=== PATIENT | female | born 1975 | race Caucasian/White ===

== ENCOUNTER → 2017-04-11 | Outpatient (CLI) | payer OTHER ==
[~2017-04-11] MED LIST: ADVI200C9 PO; LORT5TAB PO; MELO15TA2 PO; PRED20 PO; ROBA750T3 PO; TAB-TAB PO
[2017-04-11 08:21] LABS: ALT (GPT) 19 U/L (10-53); ANION GAP 6 MEQ/L (5-15); AST (GOT) 20 U/L (15-37); BICARBONATE 28.1 MEQ/L (21.0-32.0); BLOOD UREA NITROGEN 8 MG/DL (7-18); CHLORIDE 107 MEQ/L (98-107); GLOMERULAR FILTRATION RATE 99 ML/MIN (>89); GLUCOSE,FASTING 90 MG/DL (74-99); SODIUM (NA) 141 MEQ/L (136-145)
[2017-04-11 08:27] LABS: ALKALINE PHOSPHATASE 50 U/L (45-117); HDL CHOLESTEROL 52.5 MG/DL (40.0-60.0); LDL CHOLESTEROL 93 MG/DL (0-99); THYROXINE (T4) 8.6 MCG/DL (4.8-13.9); TOTAL BILIRUBIN ADULT 0.5 MG/DL (0.2-1.0)
== END ==
LOC: CLAB 07:28
PROVIDERS: ATTEND Family Medicine
DX: R53.83 Other fatigue (principal)
CPT/HCPCS: 36415; 80053; 80061; 84436; 84443

== ENCOUNTER 2017-09-30 23:09 | Emergency (ER) | payer OTHER ==
[~2017-09-30] VITALS: Ht 170.2 cm; Wt 55.1 kg
[2017-09-30 23:25] VITALS: BP 99/49; PULSE 56; RESP 20; TEMP 97.6; O2SAT 100
[2017-10-01 00:05] VITALS: BP 106/52; PULSE 54; RESP 16; RESP 18; O2SAT 99
[2017-10-01] MEDS ORDERED: CALCTAB94 PO (00:16)
[2017-10-01] MEDS ORDERED: SERT25TA83 PO (00:16)
[2017-10-01] MEDS ORDERED: VITA250C3 CHEW (00:16)
[2017-10-01] MEDS ORDERED: VITA2000 PO (00:16)
[2017-10-01 00:55] LABS: BLOOD, URINE TRACE (NEG); GLUCOSE,URINE NEG (NEG); KETONE, URINE 15 mg/dL (NEG); NITRITE,URINE NEG (NEG)
[2017-10-01 00:55] LABS: AUTOMATED NEUTROPHIL # 15.8 TH/MM3 (1.8-7.7); BASOPHIL # 0.2 TH/MM3 (0-0.2); EOSINOPHIL % 0.1 % (0.0-4.0); HEMATOCRIT 44.2 % (35.0-46.0); LYMPH % 2.8 % (9.0-44.0); LYMPHOCYTE # 0.5 TH/MM3 (1.0-4.8); MEAN CELL VOLUME 85.8 FL (80.0-100.0); MEAN CORPUSCULAR HEMOGLOBIN 29.9 PG (27.0-34.0); MEAN CORPUSCULAR HGB CONC 34.8 % (32.0-36.0); MONO % 2.1 % (0.0-8.0); PLATELET COUNT 280 TH/MM3 (150-450); RED BLOOD COUNT 5.15 MIL/MM3 (4.00-5.30); RED CELL DISTRIBUTION WIDTH 12.4 % (11.6-17.2); WHITE BLOOD COUNT 16.9 TH/MM3 (4.0-11.0)
[2017-10-01 01:05] VITALS: BP 99/46; PULSE 52; RESP 16; O2SAT 96
[2017-10-01 01:29] LABS: CHLORIDE 103 MEQ/L (98-107); POTASSIUM 3.9 MEQ/L (3.5-5.1); SODIUM (NA) 135 MEQ/L (136-145)
[2017-10-01 01:32] LABS: ANION GAP 8 MEQ/L (5-15); BICARBONATE 24.4 MEQ/L (21.0-32.0)
[2017-10-01 01:33] LABS: BLOOD UREA NITROGEN 14 MG/DL (7-18)
[2017-10-01 01:35] LABS: ALT (GPT) 27 U/L (10-53); AST (GOT) 21 U/L (15-37); GLOMERULAR FILTRATION RATE 87 ML/MIN (>89)
[2017-10-01 01:37] LABS: TOTAL BILIRUBIN ADULT 0.6 MG/DL (0.2-1.0)
[2017-10-01 01:38] LABS: ALKALINE PHOSPHATASE 61 U/L (45-117)
[2017-10-01 01:41] LABS: BACTERIA, URINE OCC /hpf; COMMENT (UR) CULT NOT INDICATED; CULTURE IF INDICATED CULT NOT INDICATED; MUCUS URINE MANY /lpf (OCC); SQUAMOUS EPITHELIAL CELL URINE 0-5 /hpf (0-5); URINE COLOR AMBER (YELLW/STRAW)
[2017-10-01] MEDS ORDERED: SODIUM CHLORID 0.9% 500 ML INJ 500 ML IV ONE (01:45)
[2017-10-01] MEDS ORDERED: ONDANSETRON HCL 4 MG/2 ML VIAL IV PUSH ONE (01:45)
[2017-10-01 01:48] LABS: BANDS 13 % (0-6); PLATELET ESTIMATE SMEAR NORMAL (NORMAL); PLATELET MORPHOLOGY CLUMPED (NORMAL); POLYS (SEG NEUTROPHILS) 77 % (16-70); SCAN/DIFF FINAL DIFF MANUAL; WBC DIFF SAMPLE 100
[2017-10-01 02:05] VITALS: BP 96/47; PULSE 52; RESP 16; O2SAT 98
[2017-10-01 02:15] LABS: HEMO FLAGS AUTO DIFF; NEUTROPHIL # MANUAL DIFF 15.2 TH/MM3 (1.8-7.7)
[2017-10-01] MEDS ORDERED: SODIUM CHLOR 0.9% 1000 ML INJ 1,000 ML IV ONE (02:45)
[2017-10-01 03:05] VITALS: BP 91/43; PULSE 48; RESP 16; O2SAT 99
--- NOTE | 2017-10-01 03:21 | PD ---
HPI Chief Complaint: GI Complaint Time Seen by Provider: 01:31 Travel History International Travel<30 days: No Contact w/Intl Traveler<30days: No Traveled to known affect area: No History of Present Illness HPI 42-year-old female presents to the emergency department for complaint of multiple episodes of nausea vomiting and diarrhea with intermittent abdominal cramping onset shortly after eating a salad Saturday afternoon. No hematemesis no coffee-ground emesis no melena hematochezia. No fever or chills. Patient states after multiple episodes of vomiting and diarrhea 5 decided to come the emergency room for evaluation. Pain intensity was being ordered diarrhea for over 10 in intensity. PFSH Past Medical History Medical History: Denies Significant Hx Diminished Hearing: No Musculoskeletal: Yes ("10years ago was also in [facility],had mri done of neck,discs had shifted") Tetanus Vaccination: < 5 Years Influenza Vaccination: Yes ?: Not LMP: 09/07/17 : 0 Para: 0 Miscarriage: 0 : 0 Past Surgical History Eye Surgery: Yes (LETICIA RODRÍGUEZ) Social History Alcohol Use: Yes (WEEKENDS) Tobacco Use: No Substance Use: No Allergies-Medications (Allergen,Severity, Reaction): Coded Allergies: No Known Allergies (Verified Adverse Reaction, Unknown, 10/01/17) Reported Meds & Prescriptions Reported Meds & Active Scripts Active Zofran Odt (Ondansetron Odt) 4 Mg Tab 4 Mg SL Q6HR PRN Reported Vitamin D3 (Cholecalciferol) 2,000 Unit Cap 2,000 Units PO DAILY Vitamin C (Ascorbic Acid) 250 Mg Chew 500 Mg CHEW DAILY Calcium 600 (Calcium Carbonate) 600 Mg Calcium (1500 Mg) Tab 1,500 Mg PO DAILY Sertraline (Sertraline HCl) 25 Mg Tab 25 Mg PO DAILY Review of Systems Except as stated in HPI: all other systems reviewed are Neg General / Constitutional: No: Fever, Chills HENT: No: Congestion Cardiovascular: No: Chest Pain or Discomfort Gastrointestinal: Positive: Nausea, Vomiting, Diarrhea, Abdominal Pain, No: Hematemesis, Hematochezia, Loss of Appetite Genitourinary: Positive: Decreased Urinary Output, No: Urgency, Frequency, Dysuria Musculoskeletal: No: Myalgias, Arthralgias Skin: No Rash Neurologic: No: Weakness, Dizziness, Syncope, Focal Abnormalities Psychiatric: No: Anxiety Hematologic/Lymphatic: No: Lymph Node Enlargement Physical Exam Narrative GENERAL: Well-developed well-nourished female in no acute distress no respiratory distress SKIN: Warm and dry. HEAD: Normocephalic. EYES: No scleral icterus. No injection or drainage. NECK: Supple, trachea midline. No JVD or lymphadenopathy. CARDIOVASCULAR: Regular rate and rhythm without murmurs, gallops, or rubs. RESPIRATORY: Breath sounds equal bilaterally. No accessory muscle use. GASTROINTESTINAL: Abdomen soft, mild diffuse tenderness to palpation without guarding or rebound, no heel strike pain, nondistended. MUSCULOSKELETAL: No cyanosis, or edema. BACK: Nontender without obvious deformity. No CVA tenderness. Data Data Last Documented VS Vital Signs Date Time Temp Pulse Resp B/P (MAP) Pulse Ox O2 Delivery O2 Flow Rate FiO2 10/01/17 00:05 16 99 Room Air 10/01/17 00:05 54 09/30/17 23:25 97.6 Orders Orders Complete Blood Count With Diff (10/01/17 00:16) Comprehensive Metabolic Panel (10/01/17 00:16) Urinalysis - C+S If Indicated (10/01/17 00:16) Iv Access Insert/Monitor (10/01/17 00:16) Oximetry (10/01/17 00:16) Lipase (10/01/17 00:16) Ed Urine Pregnancytest Poc (10/01/17 00:26) Ondansetron Inj (Zofran Inj) (10/01/17 01:45) Sodium Chlorid 0.9% 500 Ml Inj (Ns 500 M (10/01/17 01:45) Sodium Chlor 0.9% 1000 Ml Inj (Ns 1000 M (10/01/17 02:45) Enteric Path (Stool) (10/01/17 03:09) Ed Discharge Order (10/01/17 04:05) Labs Laboratory Tests Test 10/01/17 00:10 10/01/17 00:30 White Blood Count 16.9 TH/MM3 Red Blood Count 5.15 MIL/MM3 Hemoglobin 15.4 GM/DL Hematocrit 44.2 % Mean Corpuscular Volume 85.8 FL Mean Corpuscular Hemoglobin 29.9 PG Mean Corpuscular Hemoglobin Concent 34.8 % Red Cell Distribution Width 12.4 % Platelet Count 280 TH/MM3 Mean Platelet Volume 9.8 FL Neutrophils (%) (Auto) 94.0 % Lymphocytes (%) (Auto) 2.8 % Monocytes (%) (Auto) 2.1 % Eosinophils (%) (Auto) 0.1 % Basophils (%) (Auto) 1.0 % Neutrophils # (Auto) 15.8 TH/MM3 Lymphocytes # (Auto) 0.5 TH/MM3 Monocytes # (Auto) 0.4 TH/MM3 Eosinophils # (Auto) 0.0 TH/MM3 Basophils # (Auto) 0.2 TH/MM3 CBC Comment AUTO DIFF Differential Total Cells Counted 100 Neutrophils % (Manual) 77 % Band Neutrophils % 13 % Lymphocytes % 3 % Monocytes % 7 % Neutrophils # (Manual) 15.2 TH/MM3 Differential Comment FINAL DIFF MANUAL Platelet Estimate NORMAL Platelet Morphology Comment CLUMPED Red Cell Morphology Comment NORMAL Blood Urea Nitrogen 14 MG/DL Creatinine 0.73 MG/DL Random Glucose 119 MG/DL Total Protein 8.3 GM/DL Albumin 4.4 GM/DL Calcium Level 8.9 MG/DL Alkaline Phosphatase 61 U/L Aspartate Amino Transf (AST/SGOT) 21 U/L Alanine Aminotransferase (ALT/SGPT) 27 U/L Total Bilirubin 0.6 MG/DL Sodium Level 135 MEQ/L Potassium Level 3.9 MEQ/L Chloride Level 103 MEQ/L Carbon Dioxide Level 24.4 MEQ/L Anion Gap 8 MEQ/L Estimat Glomerular Filtration Rate 87 ML/MIN Lipase 152 U/L Urine Color LAURENCE Urine Turbidity CLEAR Urine pH 6.0 Urine Specific Ephraim 1.028 Urine Protein TRACE mg/dL Urine Glucose (UA) NEG mg/dL Urine Ketones 15 mg/dL Urine Occult Blood TRACE Urine Nitrite NEG Urine Bilirubin NEG Urine Leukocyte Esterase NEG Urine RBC 4-9 /hpf Urine Squamous Epithelial Cells 0-5 /hpf Urine Bacteria OCC /hpf Urine Mucus MANY /lpf Microscopic Urinalysis Comment CULT NOT INDICATED MDM Medical Decision Making Medical Screen Exam Complete: Yes Emergency Medical Condition: Yes Medical Record Reviewed: Yes Interpretation(s) CBC & BMP Diagram 10/01/17 00:10 Total Protein 8.3 H, Albumin 4.4, Calcium Level 8.9, Alkaline Phosphatase 61, Aspartate Amino Transf (AST/SGOT) 21, Alanine Aminotransferase (ALT/SGPT) 27, Total Bilirubin 0.6 Vital Signs Date Time Temp Pulse Resp B/P (MAP) Pulse Ox O2 Delivery O2 Flow Rate FiO2 10/01/17 00:05 16 99 Room Air 10/01/17 00:05 54 18 106/52 (70) 99 Room Air 09/30/17 23:25 97.6 56 20 99/49 (66) 100 Differential Diagnosis Gastroenteritis, food borne illness, food poisoning, colitis, bowel obstruction , ileus, atypical appendicitis, cholecystitis, pancreatitis, dehydration Narrative Course Patient placed on lgsw IV access obtained specimens collected and sent for resulting patient administered 1 L bolus normal saline Patient administered Zofran 4 mg IV Patient administered additional bolus of normal saline. CBC is automated differential leukocytosis with left shift however patient presents with history of 20 episodes of vomiting and 20 episodes of diarrhea consistent with volume depletion stress demargination and inflammatory/ infectious source of leukocytosis; metabolic panel within normal limits; urinalysis specific gravity is 1.028 specimen specimen collected this is after patient has received 1.5 L of normal saline bolus consistent with 30 cc per KG bolus Patient able to produce stool specimen that is Hemoccult negative sent for enteric pathogens Patient feels well taking oral hydration well without recurrent nausea or vomiting decreased frequency of diarrheal stool Abdomen soft nontender no guarding or rebound Patient is stable for outpatient management [facility] Point of Care Internal Pos. & Neg. Controls: Passed Fecal Specimen Occult Blood: Negative Diagnosis Primary Impression: Gastroenteritis Additional Impression: Food poisoning Qualified Codes: T62.91XA - Toxic effect of unspecified noxious substance eaten as food, accidental (unintentional), initial encounter Referrals: Primary Care Physician 2 days Patient Instructions: General Instructions Departure Forms: Tests/Procedures, Work Release Special Instructions: no work x 1 day Additional Instructions: Increase fluid hydration, follow clear liquid diet for next 12-24 hours advancing diet as tolerated to bland/Kelsey diet and then regular diet avoiding fried and fatty foods Temperature every 4 hours with thermometer take acetaminophen/Tylenol as needed for fever 100.4F or greater Takes Zofran as prescribed as needed for nausea and/or vomiting Return to the emergency for any concerns or change in condition No work times one day Follow-up with your primary care provider call office to schedule follow-up appointment Med/Other Pt SpecificInfo: Prescription(s) given Scripts Ondansetron Odt (Zofran Odt) 4 Mg Tab 4 MG SL Q6HR Y for Nausea/Vomiting, #10 TAB 0 Refills Prov: Caro Thomas MD 10/01/17 Disposition: 01 DISCHARGE HOME Condition: Stable Caro Thomas MD Oct 01, 2017 03:21
[2017-10-01] MEDS ORDERED: ZOFR4TAB3 SL (03:42)
[2017-10-01 04:05] VITALS: BP 98/46; PULSE 56; RESP 16; O2SAT 98
== END 2017-10-01 04:42 | disposition home or self-care (01) ==
LOC: PHED 23:09
DX: K52.9 Noninfective gastroenteritis and colitis, unspecified (principal); T62.91XA Toxic effect of unspecified noxious substance eaten as food, accidental (unintentional), initial encounter; A08.11 Acute gastroenteropathy due to Norwalk agent; Z79.899 Other long term (current) drug therapy
CPT/HCPCS: 80053; 81001; 83690; 84703; 85007; 85027; 87506; 96361; 96374; 99284; J2405; J7030; J7040